=== PATIENT | female | born 1955 | race Caucasian/White ===

== ENCOUNTER → 2017-04-06 | Outpatient (CLI) | payer BC | LOC: COL.RAD 11:15 | DX: M47.26 Other spondylosis with radiculopathy, lumbar region (principal); M46.86 Other specified inflammatory spondylopathies, lumbar region; M48.061 Spinal stenosis, lumbar region without neurogenic claudication ==

== ENCOUNTER → 2017-04-15 | Outpatient (CLI) | payer BC ==
[~2017-04-15] VITALS: Ht 162.6 cm; Wt 55.5 kg
[~2017-04-15] MED LIST: NORCO 325 MG-51 TAB PO; VAGIFEM10 MCG VG; VOLTAREN 50MG T50 MG PO; ZANAFLEX2 MG PO
[2017-04-15 12:12] VITALS: BP 139/95; PULSE 69
[2017-04-15 13:21] VITALS: BP 129/92; PULSE 62
== END ==
LOC: COL.RAD 07:00
DX: M51.9 Unspecified thoracic, thoracolumbar and lumbosacral intervertebral disc disorder (principal)
CPT/HCPCS: J3301

== ENCOUNTER → 2017-05-05 | Outpatient (CLI) | payer BC ==
[~2017-05-05] VITALS: Ht 162.6 cm; Wt 55.6 kg
[2017-05-05 13:50] VITALS: BP 133/84; PULSE 81
[2017-05-05 15:15] VITALS: BP 151/93; PULSE 75
== END ==
LOC: COL.RAD 13:25
DX: M51.9 Unspecified thoracic, thoracolumbar and lumbosacral intervertebral disc disorder (principal)
CPT/HCPCS: J3301

== ENCOUNTER → 2017-08-17 | Outpatient (CLI) | payer BC | LOC: COL.RAD 08:22 | DX: J84.10 Pulmonary fibrosis, unspecified (principal) | CPT/HCPCS: Q9967 ==

== ENCOUNTER 2019-12-01 09:14 | Emergency (ER) | payer BC ==
[~2019-12-01] VITALS: Ht 162.6 cm; Wt 56.8 kg
[2019-12-01 09:21] VITALS: TEMP 97.7
[2019-12-01 09:43] LABS: BASO % 0.6 % (0.0-2.0); EOS # 0.1 (0.0-0.7); EOS % 1.3 % (0-4.0); GRAN # 4.4 (1.4-6.5); GRAN % 64.9 % (42.2-75.2); HEMATOCRIT 38.9 % (37.0-47.0); HEMOGLOBIN 13.6 g/dl (12.5-16.0); LYMPH # 1.6 (1.2-3.4); LYMPH % 23.9 % (20.0-51.0); MEAN CELL VOLUME 103 fl (80.0-100.0); MEAN CORPUSCULAR HEMOGLOBIN 36 pg (27.0-31.0); MEAN CORPUSCULAR HGB CONC 35 g/dl (33.0-37.0); MEAN PLATELET VOLUME 8.8 fl (7.4-10.4); MONO # 0.6 (0.1-0.6); MONO % 9.2 % (1.7-9.3); PLATELET COUNT 205 K/mm3 (130-400); RED BLOOD COUNT 3.79 M/mm3 (4.10-5.30); REDCELL DISTRIBUTION WIDTH-CV 12.2 % (11.5-14.5)
[2019-12-01 09:57] LABS: ALANINE AMINOTRANSFERASE 15 U/L (4-34); ALBUMIN 4.2 gm/dL (3.5-5.0); ALKALINE PHOSPHATASE 56 U/L (50-136); ANION GAP 6 mmol/L (7-16); AST,SGOT 29 U/L (15-37); BILIRUBIN,TOTAL 0.7 mg/dL (0.0-1.0); BLOOD UREA NITROGEN 17 mg/dL (7-17); CALCIUM 8.9 mg/dL (8.4-10.2); CARBON DIOXIDE 26 mmol/L (22-30); CHLORIDE 104 mmol/L (98-107); CREATININE, serum 0.99 (0.52-1.25); GLUCOSE 129 mg/dL (74-106); LIPASE 125 U/L (23-300); POTASSIUM 4.2 mmol/L (3.4-5.0); SODIUM 137 mmol/L (137-145); TOTAL PROTEIN 6.8 gm/dL (6.4-8.2)
[2019-12-01 10:01] LABS: C-REACTIVE PROTEIN < 0.5 mg/dL (0.0-0.9)
[2019-12-01 10:06] LABS: TROPONIN-I < 0.012 ng/mL (0.000-0.035)
[2019-12-01] MEDS ORDERED: PROTONIX 40MG T40 MG PO (10:21)
[2019-12-01] MEDS ORDERED: CARAFATE 1GM1 G PO (10:46)
[2019-12-01 11:06] VITALS: BP 147/82; PULSE 78
== END 2019-12-01 11:16 | disposition home or self-care (01) ==
LOC: COL.ER 09:14
PROVIDERS: Emergency Medicine
DX: K27.9 Peptic ulcer, site unspecified, unspecified as acute or chronic, without hemorrhage or perforation (principal); F17.200 Nicotine dependence, unspecified, uncomplicated; Z90.710 Acquired absence of both cervix and uterus; Z88.6 Allergy status to analgesic agent; Z88.2 Allergy status to sulfonamides; Z88.1 Allergy status to other antibiotic agents
CPT/HCPCS: C9113; J1170; J2405; J3010; J7030; Q9967

== ENCOUNTER 2020-01-24 11:30 | Day surgery (SDC) | payer BC ==
[2020-01-24] VITALS (8 sets, daily range): BP systolic 109–129; BP diastolic 66–90; PULSE 58–72; TEMP 98.4–99.4
[~2020-01-24] VITALS: Ht 162.6 cm; Wt 58.2 kg
[~2020-01-24 11:30] MED LIST changes: +CARAFATE 1GM1 G PO; +PROTONIX 40MG T40 MG PO
[2020-01-24] MEDS ORDERED: VALIUM 2MG T2 MG/TAB PO (12:20)
[2020-01-24] MEDS ORDERED: PROTONIX 40MG T40 MG PO (12:20)
[2020-01-24] MEDS ORDERED: REQUIP 0.5MG0.5 MG PO (12:21)
[2020-01-24] MEDS ORDERED: KLONOPIN 0.5MG0.5 MG PO (12:22)
[2020-01-24] MEDS ORDERED: ZANAFLEX CAPSULE2 MG PO (12:23)
[2020-01-24] MEDS ORDERED: ULTRAM 50MG TAB50 MG PO (14:27)
--- NOTE | 2020-01-24 15:20 | NUR ---
Patient returns to room 6 per cart from PACU accompanied by Magdalena MADDOX and is awake and alert. IV fluids infusing and site is free of redness. Temp 97.2. Bandaids x4 on abdomen clean and dry. Siderails up x2 and call light in reach. Spouse in room. Allowed to rest.
--- NOTE | 2020-01-24 15:35 | NUR ---
Resting with eyes closed and allowed to sleep.
--- NOTE | 2020-01-24 15:50 | NUR ---
More awake and sitting up on cart. Sipping on Sprite.
--- NOTE | 2020-01-24 16:05 | NUR ---
More awake and eating crackers and drinking water. Denies pain or nausea.
--- NOTE | 2020-01-24 16:20 | NUR ---
Room air sats 100%. Denies pain or nausea. Bandaids x4 dry.
--- NOTE | 2020-01-24 16:35 | NUR ---
Assisted up to the bathroom and voids. Gait steady. Returns to room and IV discontinued. Patient dresses self.
--- NOTE | 2020-01-24 16:50 | NUR ---
Patient dismissed to home driven by spouse and taken to the front door per wheelchair and assisted into vehicle with dismissal instructions in hand.
== END 2020-01-24 16:50 | disposition home or self-care (01) ==
LOC: SDCO 11:30
DX: K81.1 Chronic cholecystitis (principal); Z90.710 Acquired absence of both cervix and uterus; G40.909 Epilepsy, unspecified, not intractable, without status epilepticus; Z90.49 Acquired absence of other specified parts of digestive tract; F17.210 Nicotine dependence, cigarettes, uncomplicated; Z88.1 Allergy status to other antibiotic agents; Z88.5 Allergy status to narcotic agent; Z20.828 Contact with and (suspected) exposure to other viral communicable diseases; G25.81 Restless legs syndrome
CPT/HCPCS: J0330; J2175; J2550; J2704; J3010; J7120

== ENCOUNTER → 2020-12-06 | Outpatient (CLI) | payer BC ==
[~2020-12-06] MED LIST changes: +KLONOPIN 0.5MG0.5 MG PO; +REQUIP 0.5MG0.5 MG PO; +ULTRAM 50MG TAB50 MG PO; +VALIUM 2MG T2 MG/TAB PO; +ZANAFLEX CAPSULE2 MG PO
== END ==
LOC: MC.RAD 13:26
DX: Z12.31 Encounter for screening mammogram for malignant neoplasm of breast (principal); N64.89 Other specified disorders of breast

== ENCOUNTER → 2020-12-10 | Outpatient (CLI) | payer BC | LOC: MC.RAD 10:55 | DX: N64.89 Other specified disorders of breast (principal) ==

== ENCOUNTER → 2021-07-04 | Outpatient (CLI) | payer OTHER, MEDICARE ==
[~2021-07-04] MED LIST changes: +DILAUDID 4MG TAB4 MG PO
== END ==
LOC: COL.RAD 07:02
DX: G31.9 Degenerative disease of nervous system, unspecified (principal)
CPT/HCPCS: A9575

== ENCOUNTER 2021-07-16 09:16 | Emergency (ER) | payer OTHER, MEDICARE ==
[~2021-07-16] VITALS: Ht 162.6 cm; Wt 63.6 kg
[~2021-07-16 09:16] MED LIST changes: -DILAUDID 4MG TAB4 MG PO
[2021-07-16 09:26] VITALS: TEMP 98
[2021-07-16 10:28] VITALS: BP 132/74; PULSE 73
[2021-07-22] MEDS ORDERED: DILAUDID 4MG TAB4 MG PO (08:23)
[2021-07-22] MEDS ORDERED: VOLTAREN 50MG T50 MG PO (08:23)
== END 2021-07-16 10:28 | disposition home or self-care (01) ==
LOC: COL.ER 09:16
DX: M54.50 Low back pain, unspecified (principal); F17.210 Nicotine dependence, cigarettes, uncomplicated; Z87.39 Personal history of other diseases of the musculoskeletal system and connective tissue; Z98.890 Other specified postprocedural states; Z28.311 Partially vaccinated for COVID-19
CPT/HCPCS: J1170

== ENCOUNTER → 2021-07-25 | Outpatient (CLI) | payer OTHER, MEDICARE ==
[~2021-07-25] VITALS: Ht 162.6 cm; Wt 61.6 kg
[~2021-07-25] MED LIST changes: +DILAUDID 4MG TAB4 MG PO
[2021-07-25 13:09] VITALS: BP 150/95; PULSE 78; TEMP 98.4
[2021-07-25 14:05] VITALS: BP 155/89; PULSE 73
== END ==
LOC: COL.RAD 12:49
DX: M51.9 Unspecified thoracic, thoracolumbar and lumbosacral intervertebral disc disorder (principal)
CPT/HCPCS: J3301

== ENCOUNTER → 2023-08-27 | Outpatient (CLI) | payer MEDICARE | LOC: MC.RAD 16:02 | DX: Z12.31 Encounter for screening mammogram for malignant neoplasm of breast (principal); N64.89 Other specified disorders of breast ==

== ENCOUNTER → 2023-09-09 | Outpatient (CLI) | payer MEDICARE | LOC: COL.RAD 09:40 | DX: Z12.2 Encounter for screening for malignant neoplasm of respiratory organs (principal); F17.210 Nicotine dependence, cigarettes, uncomplicated ==